=== PATIENT | female | born 1990 | race Two or more races ===

== ENCOUNTER 2017-12-04 23:55 | Outpatient (CLI) | END 2017-12-05 04:18 | disposition home or self-care (01) ==

== ENCOUNTER 2018-02-09 16:06 | Outpatient (CLI) | END 2018-02-09 17:10 | disposition home or self-care (01) ==

== ENCOUNTER 2018-02-14 09:59 | Inpatient (IN) | END 2018-02-17 13:55 | disposition home or self-care (01) | DRG 788 ==

== ENCOUNTER 2018-02-18 17:46 | Emergency (ER) | END 2018-02-18 20:45 | disposition home or self-care (01) ==